=== PATIENT | female | born 2000 | race Caucasian/White ===

== ENCOUNTER 2024-05-24 02:34 | Emergency (ER) | payer BC ==
[~2024-05-24] VITALS: Ht 167.6 cm; Wt 56.7 kg
[2024-05-24 02:35] VITALS: O2SAT 99
[2024-05-24] MEDS ORDERED: LAMO200T2 PO (02:45)
[2024-05-24] MEDS: LAMOTRIGINE 200 MG TABLET PO SCH (03:00)
[2024-05-24] MEDS: LAMOTRIGINE 100 MG TABLET ONE ×2 (03:03→03:04)
[2024-05-24] MEDS: ONDANSETRON ODT 4 MG TAB.RAPDIS SL ONE (03:10)
[2024-05-24] MEDS ORDERED: ONDANSETRON ODT 4 MG TAB.RAPDIS ONE (03:14)
[2024-05-24] MEDS ORDERED: METOCLOPRAMIDE HCL 10 MG/2 ML VIAL ONE (03:26)
[2024-05-24] MEDS ORDERED: diphenhydrAMINE 50 MG/1 ML VIAL ONE (03:26)
[2024-05-24] MEDS: METOCLOPRAMIDE HCL 10 MG/2 ML VIAL IM ONE (03:35)
[2024-05-24] MEDS: diphenhydrAMINE 50 MG/1 ML VIAL IM ONE (03:35)
[2024-05-24] MEDS: ACETAMINOPHEN 500 MG TABLET PO ONE (03:45)
== END 2024-05-24 03:45 | disposition home or self-care (01) ==
LOC: ER 02:36
DX: G40.909 Epilepsy, unspecified, not intractable, without status epilepticus (principal); Z79.899 Other long term (current) drug therapy
CPT/HCPCS: 99284; 96372 ×2; J1200; J2765; A4606; A4663; Q0162